=== PATIENT | female | born 1995 | race Caucasian/White ===

== ENCOUNTER 2023-08-02 01:17 | Emergency (ER) | payer OTHER, SELFPAY ==
[2023-08-02 01:20] VITALS: BP 117/83; PULSE 64; RESP 16; TEMP 35.8
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
--- NOTE | 2023-08-02 01:55 | RAD_ITS ---
EXAM: XR CERVICAL SPINE, 2 OR 3 VIEWS CLINICAL INDICATION: pain. Stiffness TECHNIQUE: Frontal and lateral views of the cervical spine. COMPARISON: No relevant prior studies available. FINDINGS: VERTEBRAE: There is partial reversal of the normal lordotic curve, a nonspecific finding, which may be due to positioning or which might be due to muscle spasm. Preserved vertebral body height. No acute fracture. No spondylolisthesis. Preservation of the normal cervical lordosis. No significant facet arthropathy. DISC SPACES: Unremarkable. Disc spaces are maintained. SOFT TISSUES: Unremarkable. No prevertebral soft tissue widening. LUNG APICES: Clear. RAD/Cerv Spine 2 or 3 Views IMPRESSION: No demonstrated fracture, subluxation, or significant degenerative changes. Electronically Signed: Tashi Bains MD at 3:10 EST Reading Location ID and State: [facility] / [place] , Service support ,
[2023-08-02 03:16] VITALS: BMI 24.2
[2023-08-02] MEDS: Naproxen 500 MG Tablet PO (03:55)
[2023-08-02] MEDS: cycloBENZAPRine HCl 10 MG Tablet PO (03:55)
[2023-08-02 04:00] VITALS: BP 117/83; PULSE 64; RESP 16
== END 2023-08-02 04:02 | disposition home or self-care (01) ==
PROVIDERS: Emergency Provider Emergency Medicine; Visit Provider Emergency Medicine
DX: S16.1XXA Strain of muscle, fascia and tendon at neck level, initial encounter (principal); X58.XXXA Exposure to other specified factors, initial encounter
CPT/HCPCS: 72040; 99283